=== PATIENT | female | born 1935 | race Caucasian/White ===

== ENCOUNTER 2020-05-05 12:34 | Inpatient (IN) ==
[2020-05-05 13:44] LABS: ABS Lymphocytes 1.4 10^3/ul (1.0-4.8); ABS Monocytes 0.4 10^3/ul (0-0.8); ABS Neutrophils 3.7 10^3/ul (1.5-7.7); Eosinophil % 0.3 %; Hematocrit 35 % (35-47); Lymphocyte % 25.6 %; Mean Corpuscular HGB Conc 34 g/dL (31-36); Mean Corpuscular Hemoglobin 31 pg (27-31); Mean Corpuscular Volume 92 fL (80-97); Mean Platelet Volume 7.2 fL (7.4-10.4); Platelet Count 214 10^3/uL (150-450); Red Blood Count 3.83 10^6 /uL (3.70-4.87); Red Cell Distribution Width 14 % (10-15); White Blood Count 5.5 10^3/uL (3.5-10.8)
[2020-05-05 14:01] LABS: Activated Partial Thrombo Time 30.4 seconds (26.0-38.0); INR 1.09 (0.82-1.09)
[2020-05-05 14:02] LABS: ALT 14 U/L (7-52); AST 16 U/L (13-39); Albumin/Globulin Ratio 2.2 (1-3); Alkaline Phosphatase 47 U/L (34-104); Anion Gap 4 mmol/L (2-11); BUN/Creatinine Ratio 16.9 (8-20); Blood Urea Nitrogen 11 mg/dL (6-24); CO2 Carbon Dioxide 28 mmol/L (22-32); Chloride 109 mmol/L (101-111); Creatine Kinase 38 U/L (10-223); EGFR African American 104.3 (>60); EGFR Non-African American 86.2 (>60); Globulin 1.8 g/dL (2-4); Glucose 97 mg/dL (70-100); Potassium 3.9 mmol/L (3.5-5.0); Sodium 141 mmol/L (135-145); Total Protein 5.8 g/dL (6.4-8.9)
[2020-05-05 14:04] LABS: Ammonia 41 mcmol/L (16-53)
[2020-05-05 14:07] LABS: BNP 132 pg/mL (<=100)
[2020-05-05 14:23] LABS: Alcohol, S < 10 mg/dL (<10)
[2020-05-05 14:38] LABS: TSH Ultra Thyroid Stim Horm 0.21 mcIU/mL (0.34-5.60)
[2020-05-05] MEDS ORDERED: Iohexol 300 (CONTRAST) 10 ML SDV IV ONE (14:57)
[2020-05-05 15:05] LABS: Urine Appearance Clear; Urine Bilirubin Negative (Negative); Urine Blood 1+ (Negative); Urine Color Straw; Urine Glucose Negative (Negative); Urine Ketones Negative (Negative); Urine Nitrite Negative (Negative); Urine Protein Negative (Negative); Urine Urobilinogen Negative (Negative)
[2020-05-05 15:08] LABS: Urine Bacteria Absent (Absent); Urine Red Blood Cell Trace(0-2/hpf) (Absent); Urine Squamous Epithelial Cell Present (Absent); Urine White Blood Cell 2+(11-20/hpf) (Absent)
[2020-05-05 16:20] LABS: C Reactive Protein 1.49 mg/L (<8.01)
[2020-05-05 19:20] LABS: T4, Total 6.79 mcg/dL (6.09-12.23)
[2020-05-05 19:29] LABS: Total T3 90 ng/dL (87-178)
[2020-05-05] MEDS ORDERED: Labetalol IV 5 MG/ML 20 ml VIAL IV PUSH ONE (21:03)
[2020-05-05] MEDS: Senna TAB 8.6 mg TAB PO SCH (21:23)
[2020-05-06] MEDS: Senna TAB 8.6 mg TAB PO SCH ×2 (09:52→22:34)
[2020-05-07] MEDS: Senna TAB 8.6 mg TAB PO SCH ×2 (10:48→20:06)
[2020-05-08] MEDS: Senna TAB 8.6 mg TAB PO SCH (10:03)
[2020-05-08 14:58] VITALS: BP 137/47
== END 2020-05-08 18:58 | disposition home health service (06) | DRG 312 ==
LOC: ED 12:34 → MEDTELE 12:34
PROVIDERS: ADMIT Internal Medicine; ATTEND Internal Medicine

== ENCOUNTER 2021-01-24 14:15 | Inpatient (IN) ==
[2021-01-24] MEDS ORDERED: NS 0.9% 1000 ml BAG 1,000 ML IV ONE (14:18)
[2021-01-24 14:53] LABS: ABS Lymphocytes 1.2 10^3/ul (1.0-4.8); ABS Monocytes 0.6 10^3/ul (0-0.8); ABS Neutrophils 9.1 10^3/ul (1.5-7.7); Eosinophil % 0.2 %; Hematocrit 38 % (35-47); Lymphocyte % 11.1 %; Mean Corpuscular HGB Conc 34 g/dL (31-36); Mean Corpuscular Hemoglobin 32 pg (27-31); Mean Corpuscular Volume 93 fL (80-97); Mean Platelet Volume 7.7 fL (7.4-10.4); Platelet Count 209 10^3/uL (150-450); Red Blood Count 4.13 10^6 /uL (3.70-4.87); Red Cell Distribution Width 14 % (10-15); White Blood Count 10.9 10^3/uL (3.5-10.8)
[2021-01-24 15:06] LABS: ALT 36 U/L (7-52); Albumin 4.5 g/dL (3.2-5.2); Albumin/Globulin Ratio 2.4 (1-3); Alkaline Phosphatase 54 U/L (34-104); BUN/Creatinine Ratio 25.4 (8-20); Blood Urea Nitrogen 16 mg/dL (6-24); C Reactive Protein 1.87 mg/L (<8.01); CO2 Carbon Dioxide 27 mmol/L (22-32); Calcium 10.4 mg/dL (8.6-10.3); Chloride 106 mmol/L (101-111); EGFR African American 107.9 (>60); EGFR Non-African American 89.2 (>60); Globulin 1.9 g/dL (2-4); Glucose 110 mg/dL (70-100); Sodium 139 mmol/L (135-145); Total Protein 6.4 g/dL (6.4-8.9)
[2021-01-24 15:28] LABS: Lipase 1577 U/L (11.0-82.0)
[2021-01-24] MEDS ORDERED: Iohexol 300 (CONTRAST) 10 ML SDV IV ONE (15:54)
[2021-01-24 17:01] LABS: Anion Gap 6 mmol/L (2-11)
[2021-01-24 17:29] LABS: Potassium Redraw 3.8 mmol/L (3.5-5.0)
[2021-01-24 19:20] LABS: Digoxin < 0.3 ng/ml (0.8-2.0)
[2021-01-24] MEDS ORDERED: NS 0.9% 1000 ml BAG 1,000 ML IV SCH (19:30)
[2021-01-24] MEDS ORDERED: Piperacillin/Tazobac ADVAN 3.375 GM in NS 0.9% 100 ml BAG 100 ML IV ONE (19:44)
[2021-01-24 19:56] LABS: Urine Appearance Cloudy; Urine Bilirubin Negative (Negative); Urine Blood 1+ (Negative); Urine Color Straw; Urine Glucose Negative (Negative); Urine Ketones Negative (Negative); Urine Nitrite Negative (Negative); Urine Protein Negative (Negative); Urine Specific Gravity 1.016 (1.002-1.030); Urine Urobilinogen Negative (Negative)
[2021-01-24] MEDS ORDERED: Zosyn per Pharmacy NOTE FOLLOW UP SCH (20:00)
[2021-01-24 20:04] LABS: Urine Bacteria Absent (Absent); Urine Red Blood Cell Trace(0-2/hpf) (Absent); Urine Squamous Epithelial Cell Present (Absent); Urine White Blood Cell Trace(0-5/hpf) (Absent)
[2021-01-24] MEDS ORDERED: Haloperidol 5 mg/ml SDV IV/IM 5 MG/ML AMP IM ONE (20:54)
[2021-01-24] MEDS ORDERED: Haloperidol 5 mg/ml SDV IV/IM 5 MG/ML AMP ONE (20:57)
[2021-01-24] MEDS: ZOSYN 3.375 GM Q8H per EXTENDED INFUSION IV SCH (23:35)
[2021-01-25 05:53] LABS: ABS Lymphocytes 1.5 10^3/ul (1.0-4.8); ABS Monocytes 0.6 10^3/ul (0-0.8); ABS Neutrophils 5.6 10^3/ul (1.5-7.7); Eosinophil % 0.2 %; Hematocrit 34 % (35-47); Hemoglobin 11.7 g/dL (12.0-16.0); Lymphocyte % 19.5 %; Mean Corpuscular HGB Conc 34 g/dL (31-36); Mean Corpuscular Hemoglobin 32 pg (27-31); Mean Corpuscular Volume 93 fL (80-97); Mean Platelet Volume 7.4 fL (7.4-10.4); Platelet Count 216 10^3/uL (150-450); Red Blood Count 3.69 10^6 /uL (3.70-4.87); Red Cell Distribution Width 14 % (10-15); White Blood Count 7.8 10^3/uL (3.5-10.8)
[2021-01-25 06:10] LABS: BUN/Creatinine Ratio 19.4 (8-20); Calcium 9.6 mg/dL (8.6-10.3); EGFR African American 109.9 (>60); EGFR Non-African American 90.8 (>60); Potassium 3.9 mmol/L (3.5-5.0)
[2021-01-25] MEDS: ZOSYN 3.375 GM Q8H per EXTENDED INFUSION IV SCH ×2 (08:39→16:49)
[2021-01-25] MEDS ORDERED: NS 0.9% 1000 ml BAG 1,000 ML IV SCH (18:00)
[2021-01-25 18:16] LABS: Total Bilirubin 1.1 mg/dL (0.2-1.0)
[2021-01-26] MEDS ORDERED: NS 0.9% 1000 ml BAG 1,000 ML IV SCH ×2 (00:06→04:16)
[2021-01-26] MEDS: ZOSYN 3.375 GM Q8H per EXTENDED INFUSION IV SCH ×3 (01:02→17:22)
[2021-01-26] MEDS ORDERED: Haloperidol 5 mg/ml SDV IV/IM 5 MG/ML AMP IV SLOW PU ONE (02:58)
[2021-01-26] MEDS ORDERED: Lorazepam PYXIS KEY PRN ×3 (08:00→19:47)
[2021-01-26] MEDS ORDERED: LORazepam 2 mg VIAL 1 ml IM ONE (08:00)
[2021-01-26 14:27] LABS: ALT 129 U/L (7-52); Albumin 4.4 g/dL (3.2-5.2); Albumin/Globulin Ratio 2.3 (1-3); Alkaline Phosphatase 59 U/L (34-104); BUN/Creatinine Ratio 18.5 (8-20); Blood Urea Nitrogen 12 mg/dL (6-24); CO2 Carbon Dioxide 24 mmol/L (22-32); Calcium 10.6 mg/dL (8.6-10.3); Chloride 108 mmol/L (101-111); EGFR African American 104.1 (>60); Globulin 1.9 g/dL (2-4); Glucose 101 mg/dL (70-100); Sodium 140 mmol/L (135-145); Total Protein 6.3 g/dL (6.4-8.9)
[2021-01-26 14:33] LABS: Anion Gap 8 mmol/L (2-11)
[2021-01-26 15:07] LABS: ABS Lymphocytes 1.7 10^3/ul (1.0-4.8); ABS Monocytes 0.7 10^3/ul (0-0.8); ABS Neutrophils 5.7 10^3/ul (1.5-7.7); Eosinophil % 0.5 %; Hematocrit 38 % (35-47); Hemoglobin 12.5 g/dL (12.0-16.0); Lymphocyte % 21.1 %; Mean Corpuscular HGB Conc 33 g/dL (31-36); Mean Corpuscular Hemoglobin 31 pg (27-31); Mean Corpuscular Volume 94 fL (80-97); Mean Platelet Volume 7.6 fL (7.4-10.4); Platelet Count 213 10^3/uL (150-450); Red Blood Count 4.04 10^6 /uL (3.70-4.87); Red Cell Distribution Width 14 % (10-15); White Blood Count 8.1 10^3/uL (3.5-10.8)
[2021-01-26 15:24] LABS: Potassium Redraw 3.6 mmol/L (3.5-5.0)
[2021-01-26] MEDS ORDERED: LORazepam 2 mg VIAL 1 ml ONE (18:35)
[2021-01-26] MEDS ORDERED: LORazepam 2 mg VIAL 1 ml IV PUSH ONE ×2 (18:35→19:48)
[2021-01-27] MEDS: Haloperidol 5 mg/ml SDV IV/IM 5 MG/ML AMP ONE ×2 (03:01→17:40)
[2021-01-27 05:06] LABS: ABS Lymphocytes 1.2 10^3/ul (1.0-4.8); ABS Monocytes 0.8 10^3/ul (0-0.8); ABS Neutrophils 8.6 10^3/ul (1.5-7.7); Eosinophil % 0.2 %; Hematocrit 36 % (35-47); Lymphocyte % 11.1 %; Mean Corpuscular HGB Conc 34 g/dL (31-36); Mean Corpuscular Hemoglobin 31 pg (27-31); Mean Corpuscular Volume 93 fL (80-97); Mean Platelet Volume 7.7 fL (7.4-10.4); Platelet Count 208 10^3/uL (150-450); Red Blood Count 3.83 10^6 /uL (3.70-4.87); Red Cell Distribution Width 13 % (10-15); White Blood Count 10.7 10^3/uL (3.5-10.8)
[2021-01-27 05:24] LABS: Albumin 3.9 g/dL (3.2-5.2); Albumin/Globulin Ratio 2.6 (1-3); Calcium 9.9 mg/dL (8.6-10.3); EGFR African American 107.9 (>60); EGFR Non-African American 89.2 (>60); Globulin 1.5 g/dL (2-4); Potassium 3.2 mmol/L (3.5-5.0); Total Bilirubin 0.9 mg/dL (0.2-1.0); Total Protein 5.4 g/dL (6.4-8.9)
[2021-01-27] MEDS: Potassium Chlor 20 meq TAB.ER PO SCH ×2 (17:47→20:30)
[2021-01-28 04:56] LABS: Albumin/Globulin Ratio 2.4 (1-3); BUN/Creatinine Ratio 24.3 (8-20); Calcium 10.1 mg/dL (8.6-10.3); EGFR African American 95.6 (>60); Globulin 1.7 g/dL (2-4); Potassium 4.3 mmol/L (3.5-5.0); Total Bilirubin 0.9 mg/dL (0.2-1.0); Total Protein 5.7 g/dL (6.4-8.9)
[2021-01-30 07:06] LABS: ABS Eosinophils 0.1 10^3/ul (0-0.6); ABS Lymphocytes 1.8 10^3/ul (1.0-4.8); ABS Monocytes 0.7 10^3/ul (0-0.8); ABS Neutrophils 5.6 10^3/ul (1.5-7.7); Eosinophil % 0.6 %; Hematocrit 37 % (35-47); Hemoglobin 12.4 g/dL (12.0-16.0); Lymphocyte % 22.1 %; Mean Corpuscular HGB Conc 34 g/dL (31-36); Mean Corpuscular Hemoglobin 32 pg (27-31); Mean Corpuscular Volume 93 fL (80-97); Mean Platelet Volume 7.9 fL (7.4-10.4); Platelet Count 231 10^3/uL (150-450); Red Blood Count 3.92 10^6 /uL (3.70-4.87); Red Cell Distribution Width 14 % (10-15); White Blood Count 8.2 10^3/uL (3.5-10.8)
[2021-01-30 07:28] LABS: Albumin 3.6 g/dL (3.2-5.2); Albumin/Globulin Ratio 2.1 (1-3); BUN/Creatinine Ratio 15.7 (8-20); Calcium 10.1 mg/dL (8.6-10.3); EGFR African American 95.6 (>60); Globulin 1.7 g/dL (2-4); Potassium 4.2 mmol/L (3.5-5.0); Total Bilirubin 0.8 mg/dL (0.2-1.0); Total Protein 5.3 g/dL (6.4-8.9)
[2021-01-31 10:59] VITALS: BP 108/45
== END 2021-01-31 15:30 | DRG 439 ==
LOC: ED 14:15 → MEDTELE 14:15
PROVIDERS: ADMIT Pediatrics; ATTEND Internal Medicine